=== PATIENT | female | born 1980 | race Hispanic/Latino ===

== ENCOUNTER 2023-03-21 11:50 | Emergency (ER) | payer OTHER ==
[2023-03-21] MEDS ORDERED: fentaNYL 50 mcg/mL 1 mL Vial ONE ×2 (12:05→14:15)
[2023-03-21] MEDS ORDERED: CEFAZOLIN 2 GM VIAL ONE (12:06)
[2023-03-21] MEDS ORDERED: Boostrix 0.5 ML (Tdap) VIAL (>/=7 yrs of age) ONE (12:06)
[2023-03-21] MEDS ORDERED: Iopamidol 300 61% 100 ML VIAL FS ONE (12:26)
[2023-03-21 12:42] LABS: #Monocytes 0.3 10x3/uL (0.0-1.1); #Neutrophils 4.3 10x3/uL (1.5-8.4); %Basophils 0.5 % (0.0-2.0); %Eosinophils 0.7 % (0.0-6.0); %Lymphocytes 22.2 % (18.0-47.0); %Monocytes 5.3 % (0.0-10.0); Hematocrit 40.6 % (34.9-44.5); Hemoglobin 13.5 g/dL (12.0-15.5); Mean Corpuscular HGB CONC 33.3 g/dL (32.0-36.0); Mean Corpuscular Hemoglobin 28.1 pg (27.0-33.0); Mean Corpuscular Volume 84.4 fl (81.6-98.3); Mean Platelet Volume 11.1 fl (7.4-10.4); Platelet Count 207 10x3/uL (150-450); RBC Distribution Width 14.6 % (11.5-14.5); Red Blood Cell (RBC) Count 4.81 10x6/uL (3.90-5.03)
[2023-03-21 12:59] LABS: BHCG - Serum Negative (NEGATIVE); Pregs Control Background? CLEAR/WHITE (CLR/WHITE); Pregs Control Bar Appear? YES (CONTROL BAR)
[2023-03-21 13:08] LABS: ALT (SGPT) 50 U/L (8-55); AST (SGOT) 67 U/L (5-34); Albumin 4.2 g/dL (3.5-5.0); Alkaline Phosphatase 68 U/L (40-110); Anion Gap 16 mmol/L (10-20); BUN (Urea Nitrogen) 17 mg/dL (7.0-18.7); Bilirubin, Total 0.4 mg/dL (0.2-1.2); Calc. Creatinine Clearance 0 mL/min (70-130); Calcium 9.1 mg/dL (7.8-10.44); Carbon Dioxide 19 mmol/L (22-29); Chloride 110 mmol/L (98-107); Estimated GFR 92; Globulin 2.9 g/dL (2.4-3.5); Glucose 152 mg/dL (70-105); Potassium 3.8 mmol/L (3.5-5.1); Protein, Total 7.1 g/dL (6.0-8.3); Sodium 141 mmol/L (136-145)
[2023-03-21] MEDS ORDERED: Bacitracin 1 PK ONE (13:55)
[2023-03-21] MEDS ORDERED: Ketorolac Tromethamine 30 MG/ML VIAL ONE (14:15)
== END 2023-03-21 14:28 | disposition home or self-care (01) ==
LOC: CSHERS 11:50
DX: S00.83XA Contusion of other part of head, initial encounter (principal); S83.92XA Sprain of unspecified site of left knee, initial encounter; S80.212A Abrasion, left knee, initial encounter; S80.211A Abrasion, right knee, initial encounter; S60.812A Abrasion of left wrist, initial encounter; S60.811A Abrasion of right wrist, initial encounter; V86.95XA Unspecified occupant of 3- or 4- wheeled all-terrain vehicle (ATV) injured in nontraffic accident, initial encounter
CPT/HCPCS: 36415; 70450; 70486; 71045; 71260; 72125; 72170; 74177; 80053; 84703; 85025; 86850; 86900; 86901; 90471; 90715; 96365; 96375; 96376; J1885; J3010; Q9967